=== PATIENT | female | born 1940 | race Caucasian/White ===

== ENCOUNTER 2023-06-28 14:25 | Inpatient (IN) | payer MEDICARE ==
[2023-06-28] MEDS ORDERED: Morphine 4 MG/ML VIAL ONE ×2 (16:49→18:20)
[2023-06-28] MEDS ORDERED: Ondansetron PF 4 MG/2 ML Vial ONE (16:50)
[2023-06-28] MEDS ORDERED: Ketorolac Tromethamine 30 MG/ML VIAL ONE (16:50)
[2023-06-28] MEDS ORDERED: Adenosine 6 MG/2 ML VIAL ONE (16:50)
[2023-06-28 17:29] LABS: #Basophils 0.1 thou/uL (0.0-0.2); #Monocytes 0.4 thou/uL (0.11-0.59); #Neutrophils 6.3 thou/uL (1.40-6.50); %Basophils 0.9 % (0.0-1.0); %Eosinophils 0.5 % (0.0-10.0); %Lymphocytes 12.1 % (21.0-51.0); %Monocytes 5.5 % (0.0-10.0); %Neutrophils 80.7 % (42.0-75.0); Hematocrit 32.7 % (36.0-47.0); Hemoglobin 10.4 g/dL (12.0-16.0); Mean Corpuscular HGB CONC 31.8 g/dL (32.0-36.0); Mean Corpuscular Hemoglobin 25.3 pg (27.0-31.0); Mean Corpuscular Volume 79.6 fl (78.0-98.0); Mean Platelet Volume 9.7 fL (7.4-10.4); Platelet Count 203 10x3/uL (130-400); RBC Distribution Width 16.5 % (11.5-14.5); Red Blood Cell (RBC) Count 4.11 mill/uL (4.20-5.40); White Blood Cell (WBC) Count 7.8 10x3/uL (4.8-10.8)
[2023-06-28 17:46] LABS: INR-International Normal Ratio 1.1; PTT 31.8 sec (22.9-36.1); Prothrombin Time 14.5 sec (12.0-14.7)
[2023-06-28 17:57] LABS: ALT (SGPT) 8 U/L (8-55); AST (SGOT) 29 U/L (5-34); Albumin 4.2 g/dL (3.4-4.8); Alkaline Phosphatase 97 U/L (40-110); Anion Gap 19 mmol/L (10-20); BUN (Urea Nitrogen) 6 mg/dL (9.8-20.1); Bilirubin, Total 0.5 mg/dL (0.2-1.2); Calc. Creatinine Clearance 0 mL/min (70-130); Carbon Dioxide 21 mmol/L (23-31); Chloride 100 mmol/L (98-107); Estimated GFR 84; Globulin 3.3 g/dL (2.4-3.5); Glucose 135 mg/dL (83-110); Potassium 4.1 mmol/L (3.5-5.1); Protein, Total 7.5 g/dL (5.8-8.1); Sodium 136 mmol/L (136-145)
[2023-06-28] MEDS ORDERED: Lisinopril 10 MG TAB ONE (18:09)
[2023-06-28] MEDS ORDERED: Ipratropium/Albuterol 3 ML NEB NEB PRN (18:10)
[2023-06-28] MEDS ORDERED: Glucagon 1 MG/ML KIT IM PRN (18:10)
[2023-06-28] MEDS ORDERED: TETANUS, DIPHTHERIA TOX,ADULT (TDVAX) 0.5 ML VIAL IM ONE (18:10)
[2023-06-28] MEDS ORDERED: Dextrose 50% Abboject 50 ML SYRINGE SLOW IVP PRN (18:10)
[2023-06-28] MEDS ORDERED: Dextrose 5% in Water 1,000 ML IV PRN (18:10)
[2023-06-28] MEDS ORDERED: HumaLOG 300 UNITS/3 ML VIAL SC PRN (18:10)
[2023-06-28] MEDS ORDERED: traMADol HCl 50 MG TAB PO PRN (18:10)
[2023-06-28] MEDS ORDERED: Acetaminophen 500 MG TAB PO SCH (18:30)
[2023-06-28 19:00] LABS: Bacteria/HPF None Seen HPF (None Seen); Bilirubin Negative (Negative); Blood, Urine Negative (Negative); CAUTI Indications for Culture Alt mental st,lethar; Clarity Clear (Clear); Glucose, Urine (Dipstick) Normal (Negative); Ketone, Urine 10 mg/dL (Negative); Leukocyte Negative Leu/uL (Negative); Nitrite Negative (Negative); Protein, Urine (Dipstick) Negative (Neg-Trace); RBC/HPF 0-3 HPF (0-3); Specific Gravity, Urine 1.007 (1.002-1.036); Squamous Epithelial 0-3 HPF (0-3); Urobilinogen Normal mg/dL (Less than 2); WBC/HPF 0-3 HPF (0-3); pH, Urine 5.5 (5.0-9.0)
[2023-06-28 19:03] LABS: Urine Culture Reflex No No
[2023-06-28] MEDS: Morphine 2 MG/ML VIAL SLOW IVP PRN (22:30)
[2023-06-28] MEDS: Ondansetron ODT 4 MG TAB PO PRN (22:32)
[2023-06-28] MEDS: Famotidine 20 MG TAB PO SCH (22:32)
[2023-06-28] MEDS: Sodium Chloride 0.9% 1,000 ML IV SCH (23:18)
[2023-06-29] MEDS: Acetaminophen 500 MG TAB PO SCH ×2 (00:55→06:04)
[2023-06-29 01:16] VITALS: BMI 18.8
[2023-06-29] MEDS: Morphine 2 MG/ML VIAL SLOW IVP PRN ×6 (01:39→21:13)
[2023-06-29] MEDS: hydrALAZINE 20 MG/ML VIAL SLOW IVP PRN (01:39)
[2023-06-29] MEDS ORDERED: Magnesium Citrate 300 ML BOT PO SCH ×2 (03:30→06:00)
[2023-06-29] MEDS: HYDROcodone/Acetaminophen 7.5/325 mg Tablet PO PRN (05:17)
[2023-06-29] MEDS ORDERED: CEFAZOLIN 2 GM in Sodium Chloride 0.9% 100 ML IVPB SCH (07:15)
[2023-06-29] MEDS: Famotidine 20 MG TAB PO SCH ×2 (09:00→21:12)
[2023-06-29] MEDS: Sodium Chloride 0.9% 1,000 ML IV SCH ×2 (11:27→21:33)
[2023-06-29] MEDS: Acetaminophen 325 MG TAB PO SCH ×3 (11:30→23:24)
[2023-06-29] MEDS ORDERED: fentaNYL 50 mcg/mL 1 mL Vial ONE ×3 (16:02→17:45)
[2023-06-29] MEDS ORDERED: HYDROmorphone 0.5 MG/0.5 ML SYRINGE ONE (16:07)
[2023-06-29] MEDS ORDERED: Sodium Chloride 0.9% 100 ML ONE (16:09)
[2023-06-29] MEDS ORDERED: CEFAZOLIN 2 GM VIAL ONE (16:09)
[2023-06-29] MEDS ORDERED: ePHEDrine Sulfate 50 MG/10 ML VIAL ONE (16:21)
[2023-06-29] MEDS ORDERED: Glycopyrrolate 0.2 MG/ML 5 ML SYRINGE ONE (16:21)
[2023-06-29] MEDS ORDERED: PROPOFOL 200 MG/20 ML VIAL ONE (16:21)
[2023-06-29] MEDS ORDERED: Dexamethasone 20 MG/5 ML VIAL ONE (16:21)
[2023-06-29] MEDS ORDERED: Lidocaine 1% PF 5 ML VIAL ONE (16:21)
[2023-06-29] MEDS ORDERED: Ondansetron PF 4 MG/2 ML Vial ONE ×2 (16:21→18:19)
[2023-06-29] MEDS ORDERED: NEOSTIGMINE 3 MG/3 ML SYR 3 MG/3 ML SYRINGE ONE (16:21)
[2023-06-29] MEDS ORDERED: Ondansetron HCl/PF 4 MG/2 ML Vial IVP PRN (17:04)
[2023-06-29] MEDS ORDERED: Promethazine HCl 25 MG/ML VIAL IM PRN (17:04)
[2023-06-29] MEDS ORDERED: HYDROmorphone 2 MG/ML VIAL SLOW IVP PRN (17:04)
[2023-06-29] MEDS ORDERED: Morphine Sulfate 2 MG/ML SYRINGE SLOW IVP PRN (17:04)
[2023-06-29] MEDS ORDERED: SUGAMMADEX SODIUM 200 MG/2 ML VIAL ONE (17:22)
[2023-06-29] MEDS ORDERED: fentaNYL PF 100 MCG/2 ML SYRINGE ONE (18:03)
[2023-06-29] MEDS: Ondansetron ODT 4 MG TAB PO PRN (21:17)
[2023-06-29] MEDS: CEFAZOLIN 2 GM in Sodium Chloride 0.9% 100 ML IVPB SCH (23:23)
[2023-06-30] MEDS: Morphine 2 MG/ML VIAL SLOW IVP PRN ×5 (02:20→15:31)
[2023-06-30] MEDS: Acetaminophen 325 MG TAB PO SCH ×4 (04:48→23:02)
[2023-06-30] MEDS: Sodium Chloride 0.9% 1,000 ML IV SCH ×4 (06:12→23:02)
[2023-06-30] MEDS: CEFAZOLIN 2 GM in Sodium Chloride 0.9% 100 ML IVPB SCH ×2 (08:55→15:31)
[2023-06-30] MEDS: Ondansetron ODT 4 MG TAB PO PRN ×2 (08:56→18:43)
[2023-06-30] MEDS: Famotidine 20 MG TAB PO SCH ×2 (08:56→21:32)
[2023-06-30] MEDS: Cyclobenzaprine 10 MG TAB PO PRN ×2 (11:07→18:32)
[2023-06-30] MEDS: hydrALAZINE 20 MG/ML VIAL SLOW IVP PRN (12:31)
[2023-06-30] MEDS: HYDROcodone/Acetaminophen 7.5/325 mg Tablet PO PRN (21:32)
[2023-07-01] MEDS: HYDROcodone/Acetaminophen 7.5/325 mg Tablet PO PRN ×4 (04:25→21:34)
[2023-07-01] MEDS: Acetaminophen 325 MG TAB PO SCH ×4 (04:27→23:41)
[2023-07-01 07:58] LABS: #Basophils 0.1 thou/uL (0.0-0.2); #Eosinphils 0.2 thou/uL (0.0-0.7); #Monocytes 0.3 thou/uL (0.11-0.59); #Neutrophils 3.4 thou/uL (1.40-6.50); %Basophils 1.2 % (0.0-1.0); %Monocytes 6.6 % (0.0-10.0); Hematocrit 28.7 % (36.0-47.0); Hemoglobin 9.2 g/dL (12.0-16.0); Mean Corpuscular HGB CONC 32.1 g/dL (32.0-36.0); Mean Corpuscular Hemoglobin 25.9 pg (27.0-31.0); Mean Corpuscular Volume 80.8 fl (78.0-98.0); Mean Platelet Volume 9.3 fL (7.4-10.4); Platelet Count 214 10x3/uL (130-400); Red Blood Cell (RBC) Count 3.55 mill/uL (4.20-5.40)
[2023-07-01] MEDS: Famotidine 20 MG TAB PO SCH ×2 (09:34→21:35)
[2023-07-01] MEDS: Senokot S 8.6-50 MG TAB PO SCH (21:33)
[2023-07-01] MEDS: Lisinopril 10 MG TAB PO SCH (21:35)
[2023-07-01] MEDS: Cyclobenzaprine 10 MG TAB PO PRN (21:35)
[2023-07-01] MEDS: Ondansetron ODT 4 MG TAB PO PRN (21:35)
[2023-07-02] MEDS: Acetaminophen 325 MG TAB PO SCH ×2 (05:42→11:43)
[2023-07-02] MEDS: HYDROcodone/Acetaminophen 7.5/325 mg Tablet PO PRN (05:42)
[2023-07-02] MEDS: Ondansetron ODT 4 MG TAB PO PRN (05:42)
[2023-07-02] MEDS ORDERED: Naloxegol 12.5 MG TAB PO SCH (07:30)
[2023-07-02] MEDS: Senokot S 8.6-50 MG TAB PO SCH (08:05)
[2023-07-02] MEDS: Lisinopril 10 MG TAB PO SCH (08:06)
[2023-07-02] MEDS: Famotidine 20 MG TAB PO SCH (08:06)
[2023-07-02] MEDS ORDERED: Lisinopril 10 MG TAB PO SCH (08:52)
[2023-07-02] MEDS ORDERED: Lisinopril 20 MG TAB PO SCH (09:00)
[2023-07-02] MEDS ORDERED: Polyethylene Glycol 3350 17 GM Packet PO SCH (09:00)
[2023-07-02] MEDS: Magnesium Citrate 300 ML BOT PO SCH ×2 (11:44→12:09)
[2023-07-02 12:49] VITALS: BP 176/83; TEMP 98.4
[2023-07-02] MEDS ORDERED: metFORMIN 500 MG TAB PO SCH (17:00)
[2023-07-02] MEDS ORDERED: Simvastatin 40 MG TAB PO SCH (21:00)
[2023-07-02] MEDS ORDERED: Atorvastatin Calcium 20 MG TAB PO SCH (21:00)
== END 2023-07-02 15:30 | DRG 480 ==
LOC: ERS 14:25 → ERHOLD 18:00 → EEVIPCON 18:00 → SURG B 20:34
PROVIDERS: ADMIT Specialist; ATTEND Specialist
PROC: 0QS704Z Reposition Left Upper Femur with Internal Fixation Device, Open Approach (ICD-10-PCS; principal; 2023-06-29)
PROC: 3E033XZ Introduction of Vasopressor into Peripheral Vein, Percutaneous Approach (ICD-10-PCS; 2023-06-29)
DX: S72.142A Displaced intertrochanteric fracture of left femur, initial encounter for closed fracture (principal); E43 Unspecified severe protein-calorie malnutrition; D62 Acute posthemorrhagic anemia; Z68.1 Body mass index [BMI] 19.9 or less, adult; I10 Essential (primary) hypertension; E11.9 Type 2 diabetes mellitus without complications; M19.90 Unspecified osteoarthritis, unspecified site; G43.909 Migraine, unspecified, not intractable, without status migrainosus; W18.30XA Fall on same level, unspecified, initial encounter; Z90.89 Acquired absence of other organs; Z90.710 Acquired absence of both cervix and uterus; Z88.6 Allergy status to analgesic agent; Z88.8 Allergy status to other drugs, medicaments and biological substances; K59.00 Constipation, unspecified
CPT/HCPCS: 36415; 36416; 70450; 71045; 72170; 80053; 85025; 85610; 85730; 86850; 86900; 86901; 93005; 96374; 96375; 96376; C1713; G0390; J0153; J0360; J1100; J1170; J1650; J1815; J1885; J2270; J2272; J2405; J2704; J3010; J3490; J7050; Q0162